=== PATIENT | male | born 1945 | race Caucasian/White ===

== ENCOUNTER → 2018-09-13 | Outpatient (CLI) | payer MEDICARE, BC ==
[~2018-09-13] MED LIST: ASPI81CH PO; Cyclobenzaprine5 MG PO; LOSA25 PO; LOVA40; METF500 PO; Norco 5-325 Ta1 EACH PO; OMEP20ER PO
== END | disposition home or self-care (01) ==
LOC: LAB SRC 09:30 → LAB SHORT 09:30
DX: E78.2 Mixed hyperlipidemia (principal); E11.9 Type 2 diabetes mellitus without complications; I10 Essential (primary) hypertension
CPT/HCPCS: 82043

== ENCOUNTER 2018-12-07 13:36 | Day surgery (SDC) | payer MEDICARE, BC ==
[~2018-12-07] VITALS: Ht 177.8 cm; Wt 81.0 kg
[2018-12-07] MEDS ORDERED: GLUC500 (14:07)
[2018-12-07] MEDS ORDERED: CYAN1000I (14:08)
[2018-12-07] MEDS ORDERED: FOLGARD TABLET1 EACH (14:08)
== END 2018-12-07 16:02 | disposition home or self-care (01) ==
LOC: ORSCSDS 13:36
PROVIDERS: Internal Medicine Gastroenterology
PROC: 0DBH8ZX Excision of Cecum, Via Natural or Artificial Opening Endoscopic, Diagnostic (ICD-10-PCS; principal; 2018-12-07 15:00)
PROC: 0DBN8ZX Excision of Sigmoid Colon, Via Natural or Artificial Opening Endoscopic, Diagnostic (ICD-10-PCS; principal; 2018-12-07 15:00)
PROC: 0DBL8ZX Excision of Transverse Colon, Via Natural or Artificial Opening Endoscopic, Diagnostic (ICD-10-PCS; principal; 2018-12-07 15:00)
PROC: 0DBM8ZX Excision of Descending Colon, Via Natural or Artificial Opening Endoscopic, Diagnostic (ICD-10-PCS; principal; 2018-12-07 15:00)
DX: Z12.11 Encounter for screening for malignant neoplasm of colon (principal); Z86.010 Personal history of colon polyps; D12.3 Benign neoplasm of transverse colon; D12.0 Benign neoplasm of cecum; D12.4 Benign neoplasm of descending colon; K57.30 Diverticulosis of large intestine without perforation or abscess without bleeding; E11.9 Type 2 diabetes mellitus without complications; F17.210 Nicotine dependence, cigarettes, uncomplicated; Z79.899 Other long term (current) drug therapy; Z79.82 Long term (current) use of aspirin; Z79.84 Long term (current) use of oral hypoglycemic drugs
CPT/HCPCS: 82947; 88305; J2704; J7120

== ENCOUNTER → 2019-03-16 | Outpatient (CLI) | payer MEDICARE, BC ==
[~2019-03-16] MED LIST changes: +CYAN1000I; +FOLGARD TABLET1 EACH; +GLUC500
== END | disposition home or self-care (01) ==
LOC: LAB SHORT 12:38 → LAB SRC 12:38 → LAB FUT 03-15 10:00
DX: E11.9 Type 2 diabetes mellitus without complications (principal); E78.2 Mixed hyperlipidemia; I10 Essential (primary) hypertension
CPT/HCPCS: 82043

== ENCOUNTER 2020-04-20 14:17 | Emergency (ER) | payer MEDICARE, BC ==
[~2020-04-20] VITALS: Ht 177.8 cm; Wt 83.9 kg
[2020-04-20 18:54] LABS: BASOPHILS ABSOLUTE AUTO 0.07 K/mm3 (0.00-0.23); BASOPHILS PERCENT AUTO 1 % (0-2); EOSINOPHILS ABSOLUTE AUTO 0.28 K/mm3 (0.00-0.68); EOSINOPHILS PERCENT AUTO 3 % (0-6); Hematocrit 45.1 % (37.0-53.0); Hemoglobin 14.9 g/dL (13.5-17.5); IMMATURE GRAN ABSOLUTE AUTO 0.01 K/mm3 (0.00-0.10); IMMATURE GRAN PERCENT AUTO 0 % (0-1); LYMPHOCYTES ABSOLUTE AUTO 3.06 K/mm3 (0.84-5.20); LYMPHOCYTES PERCENT AUTO 31 % (21-46); MONOCYTES PERCENT AUTO 9 % (4-13); Mean Corpuscular Volume 91 fL (80-100); Mean Platelet Volume 9.2 fL (9.1-12.4); NEUTROPHILS ABSOLUTE AUTO 5.69 K/mm3 (1.96-9.15); NEUTROPHILS PERCENT AUTO 57 % (41-73); Platelet Count 311 K/mm3 (150-400); RDW Coefficient Variation 13.2 % (11.7-14.2); RDW Standard Deviation 44.3 fL (35.1-46.3); Red Blood Cell Count 4.97 M/mm3 (4.30-5.90); White Blood Cell Count 10.01 K/mm3 (4.00-11.30)
[2020-04-20 19:16] LABS: Alanine Aminotransfer (ALT/SGP 33 U/L (12-78); Albumin, Blood 4.1 g/dL (3.4-5.0); Albumin/Globulin Ratio 1.1 (0.8-1.8); Alk Phos 137 U/L (50-136); Anion Gap 5 mmol/L (6-16); Aspartate Aminotrans (AST/SGOT 22 U/L (12-37); Bilirubin, Total 0.3 mg/dL (0.1-1.0); Blood Urea Nitrogen 19 mg/dL (8-24); CO2, Blood 27 mmol/L (21-32); CPK Creatine Kinase 97 U/L (39-308); Calcium, Blood 9.2 mg/dL (8.5-10.1); Chloride, Blood 110 mmol/L (98-108); Creatinine, Blood 0.83 mg/dL (0.60-1.20); Globulin, Blood 3.6 g/dL (2.2-4.0); Glomerular Filtration Rate >60 (60-); Glucose, Blood 109 mg/dL (70-99); Potassium, Blood 3.7 mmol/L (3.5-5.5); Sodium, Blood 142 mmol/L (136-145); Total Protein, Blood 7.7 g/dL (6.4-8.2)
== END 2020-04-20 20:47 | disposition home or self-care (01) ==
LOC: ER 14:17
PROVIDERS: Emergency Medicine
DX: R10.32 Left lower quadrant pain (principal); E11.9 Type 2 diabetes mellitus without complications; I10 Essential (primary) hypertension; E78.00 Pure hypercholesterolemia, unspecified; F17.200 Nicotine dependence, unspecified, uncomplicated; Z79.82 Long term (current) use of aspirin; Z79.899 Other long term (current) drug therapy; Z79.84 Long term (current) use of oral hypoglycemic drugs
CPT/HCPCS: 36415; 73502; 80053; 82550; 85025; 93971; 99284-25

== ENCOUNTER 2021-01-07 20:29 | Emergency (ER) | payer MEDICARE, BC ==
[~2021-01-07] VITALS: Ht 177.8 cm; Wt 81.7 kg
== END 2021-01-07 22:10 | disposition home or self-care (01) ==
LOC: ER 20:29
DX: S43.014A Anterior dislocation of right humerus, initial encounter (principal); W01.10XA Fall on same level from slipping, tripping and stumbling with subsequent striking against unspecified object, initial encounter; E11.9 Type 2 diabetes mellitus without complications; I10 Essential (primary) hypertension; E78.00 Pure hypercholesterolemia, unspecified; F17.200 Nicotine dependence, unspecified, uncomplicated
CPT/HCPCS: 23650; 73020; 73030; 96374; 96375; 99283-25; J2270; J2405; J2704; J3010; J7030

== ENCOUNTER 2021-03-04 02:46 | Emergency (ER) | payer MEDICARE, BC ==
[~2021-03-04] VITALS: Ht 177.8 cm; Wt 81.7 kg
[2021-03-04] MEDS ORDERED: TRAM50 PO (02:59)
[2021-03-04] MEDS ORDERED: TIZA4 PO (02:59)
[2021-03-04] MEDS ORDERED: LOSA50 PO (03:00)
[2021-03-04] MEDS ORDERED: LIDO700A20 TOP (03:24)
[2021-03-04] MEDS ORDERED: CYCL10 PO (03:24)
[2021-03-04] MEDS ORDERED: IBUP400 PO (03:24)
== END 2021-03-04 03:38 | disposition home or self-care (01) ==
LOC: ER 02:46
DX: G89.29 Other chronic pain (principal); M54.50 Low back pain, unspecified; I10 Essential (primary) hypertension; E11.9 Type 2 diabetes mellitus without complications; E78.00 Pure hypercholesterolemia, unspecified; F17.200 Nicotine dependence, unspecified, uncomplicated; Z79.899 Other long term (current) drug therapy; Z79.84 Long term (current) use of oral hypoglycemic drugs; Z79.82 Long term (current) use of aspirin
CPT/HCPCS: 99283-25; A9270

== ENCOUNTER 2021-05-07 14:11 | Day surgery (SDC) | payer MEDICARE, BC ==
[~2021-05-07] VITALS: Ht 177.8 cm; Wt 79.0 kg
[~2021-05-07 14:11] MED LIST changes: +CYCL10 PO; +IBUP400 PO; +LIDO700A20 TOP; +LOSA50 PO; +TIZA4 PO; +TRAM50 PO
--- NOTE | 2021-05-07 17:38 | NUR ---
05/07/21 6199 Joceline Sun THROUGHLY WENT OVER DC INSTRUCTIONS WITH PT AND , ANSWERED ALL QUESTIONS.
== END 2021-05-07 17:30 | disposition home or self-care (01) ==
LOC: ORSCSDS 14:11
PROVIDERS: Internal Medicine Gastroenterology
PROC: 0DB58ZX Excision of Esophagus, Via Natural or Artificial Opening Endoscopic, Diagnostic (ICD-10-PCS; principal; 2021-05-07 15:45)
PROC: 0DB98ZX Excision of Duodenum, Via Natural or Artificial Opening Endoscopic, Diagnostic (ICD-10-PCS; principal; 2021-05-07 15:45)
PROC: 0DB68ZX Excision of Stomach, Via Natural or Artificial Opening Endoscopic, Diagnostic (ICD-10-PCS; principal; 2021-05-07 15:45)
DX: R10.12 Left upper quadrant pain (principal); K29.80 Duodenitis without bleeding; K22.81 Esophageal polyp; K29.70 Gastritis, unspecified, without bleeding; E11.9 Type 2 diabetes mellitus without complications; F17.210 Nicotine dependence, cigarettes, uncomplicated; Z79.84 Long term (current) use of oral hypoglycemic drugs; Z79.82 Long term (current) use of aspirin; Z79.899 Other long term (current) drug therapy
CPT/HCPCS: 82947; 88305; 88342; J0330; J0461; J2405; J2704; J7120

== ENCOUNTER 2022-12-04 07:37 | Day surgery (SDC) | payer MEDICARE, BC ==
[~2022-12-04] VITALS: Ht 177.8 cm; Wt 81.6 kg
[2022-12-04] MEDS ORDERED: Vitamin C100 M1 (07:56)
[2022-12-04] MEDS ORDERED: ROSU5 (07:57)
[2022-12-04] MEDS ORDERED: MULTIPLE VITAM1 EACH (07:57)
[2022-12-04] MEDS ORDERED: FAMO10 (07:58)
[2022-12-04] MEDS ORDERED: OLMESARTAN (07:58)
[2022-12-04 10:10] VITALS: BP 120/72
--- NOTE | 2022-12-04 10:39 | NUR ---
12/04/22 1039 MASHA CHURCH IV REMOVED. WNL. CANNULA INTACT. ROMARIO WELL
== END 2022-12-04 10:48 | disposition home or self-care (01) ==
LOC: ORSCSDS 07:37
PROVIDERS: Internal Medicine Gastroenterology
PROC: 0DBN8ZX Excision of Sigmoid Colon, Via Natural or Artificial Opening Endoscopic, Diagnostic (ICD-10-PCS; principal; 2022-12-04 09:00)
PROC: 0DBM8ZX Excision of Descending Colon, Via Natural or Artificial Opening Endoscopic, Diagnostic (ICD-10-PCS; principal; 2022-12-04 09:00)
PROC: 0DBH8ZX Excision of Cecum, Via Natural or Artificial Opening Endoscopic, Diagnostic (ICD-10-PCS; principal; 2022-12-04 09:00)
DX: Z12.11 Encounter for screening for malignant neoplasm of colon (principal); Z86.010 Personal history of colon polyps; D12.4 Benign neoplasm of descending colon; D12.0 Benign neoplasm of cecum; K63.5 Polyp of colon; K57.30 Diverticulosis of large intestine without perforation or abscess without bleeding; Z79.899 Other long term (current) drug therapy; Z79.82 Long term (current) use of aspirin; K21.9 Gastro-esophageal reflux disease without esophagitis; E11.9 Type 2 diabetes mellitus without complications; F17.210 Nicotine dependence, cigarettes, uncomplicated; Z79.84 Long term (current) use of oral hypoglycemic drugs
CPT/HCPCS: 82947; 88305; J2704; J7120; Q9968

== ENCOUNTER 2023-12-28 09:40 | Day surgery (SDC) | payer MEDICARE, BC ==
[~2023-12-28] VITALS: Ht 177.8 cm; Wt 78.7 kg
[~2023-12-28 09:40] MED LIST changes: +FAMO10; +Lactated Ringer's 1,000 ML IV ONE; +MULTIPLE VITAM1 EACH; +OLMESARTAN; +ROSU5; +Vitamin C100 M1; +propofoL 50 ML IV ONE
[2023-12-28] MEDS ORDERED: METF500 (10:22)
[2023-12-28] MEDS ORDERED: Lactated Ringer's 1,000 ML IV ONE (11:12)
[2023-12-28 12:19] VITALS: BP 112/69
== END 2023-12-28 12:35 | disposition home or self-care (01) ==
LOC: ORSCSDS 09:40
PROVIDERS: Internal Medicine Gastroenterology
PROC: 0DBP8ZX Excision of Rectum, Via Natural or Artificial Opening Endoscopic, Diagnostic (ICD-10-PCS; principal; 2023-12-28 11:15)
PROC: 0DB78ZX Excision of Stomach, Pylorus, Via Natural or Artificial Opening Endoscopic, Diagnostic (ICD-10-PCS; principal; 2023-12-28 11:15)
DX: R19.7 Diarrhea, unspecified (principal); Z86.0100 Personal history of colon polyps, unspecified; K21.9 Gastro-esophageal reflux disease without esophagitis; D12.8 Benign neoplasm of rectum; K31.7 Polyp of stomach and duodenum; F17.210 Nicotine dependence, cigarettes, uncomplicated; K57.30 Diverticulosis of large intestine without perforation or abscess without bleeding; E11.9 Type 2 diabetes mellitus without complications; E78.5 Hyperlipidemia, unspecified; I10 Essential (primary) hypertension; Z79.899 Other long term (current) drug therapy
CPT/HCPCS: 82947; 88305; 88341; 88342; J2704; J7120

== ENCOUNTER 2024-03-16 22:24 | Emergency (ER) | payer MEDICARE, BC ==
[~2024-03-16] VITALS: Ht 177.8 cm; Wt 82.5 kg
[~2024-03-16 22:24] MED LIST changes: -Lactated Ringer's 1,000 ML IV ONE; +METF500; -propofoL 50 ML IV ONE
[2024-03-16 23:09] LABS: BASOPHILS ABSOLUTE AUTO 0.07 K/mm3 (0.00-0.23); BASOPHILS PERCENT AUTO 1 % (0-2); EOSINOPHILS ABSOLUTE AUTO 0.22 K/mm3 (0.00-0.68); EOSINOPHILS PERCENT AUTO 2 % (0-6); Hematocrit 40.5 % (37.0-53.0); Hemoglobin 13.5 g/dL (13.5-17.5); IMMATURE GRAN ABSOLUTE AUTO 0.04 K/mm3 (0.00-0.10); IMMATURE GRAN PERCENT AUTO 0 % (0-1); LYMPHOCYTES ABSOLUTE AUTO 2.82 K/mm3 (0.84-5.20); LYMPHOCYTES PERCENT AUTO 24 % (21-46); MONOCYTES PERCENT AUTO 8 % (4-13); Mean Corpuscular HGB 30.1 pg (26.0-34.0); Mean Corpuscular HGB Conc 33.3 g/dL (31.5-36.5); Mean Corpuscular Volume 90 fL (80-100); Mean Platelet Volume 8.8 fL (9.1-12.4); NEUTROPHILS ABSOLUTE AUTO 7.63 K/mm3 (1.96-9.15); NEUTROPHILS PERCENT AUTO 65 % (41-73); Platelet Count 292 K/mm3 (150-400); RDW Coefficient Variation 13.7 % (11.7-14.2); RDW Standard Deviation 45.7 fL (35.1-46.3); Red Blood Cell Count 4.48 M/mm3 (4.30-5.90); White Blood Cell Count 11.68 K/mm3 (4.00-11.30)
[2024-03-16 23:18] LABS: Albumin, Blood 3.7 g/dL (3.4-5.0); Albumin/Globulin Ratio 1.1 (0.8-1.8); Bilirubin, Total 0.2 mg/dL (0.1-1.0); Calcium, Blood 9.1 mg/dL (8.5-10.1); Creatinine, Blood 0.79 mg/dL (0.60-1.20); Globulin, Blood 3.5 g/dL (2.2-4.0); Potassium, Blood 3.8 mmol/L (3.5-5.5); Total Protein, Blood 7.2 g/dL (6.4-8.2)
[2024-03-17 02:45] VITALS: BP 133/66
[2024-03-17] MEDS ORDERED: Azithromycin 250 MG Tab PO ONE (02:55)
[2024-03-17] MEDS ORDERED: Amoxicillin/Clavulanate K 875 MG Tab PO ONE (02:55)
[2024-03-17] MEDS ORDERED: AMOCLA875 PO (03:26)
[2024-03-17] MEDS ORDERED: AZIT250 PO (03:26)
== END 2024-03-17 03:30 | disposition home or self-care (01) ==
LOC: ER 22:24
PROVIDERS: Student in an Organized Health Care Education/Training Program
DX: J18.9 Pneumonia, unspecified organism (principal); R07.81 Pleurodynia; D72.829 Elevated white blood cell count, unspecified; E11.9 Type 2 diabetes mellitus without complications; I10 Essential (primary) hypertension; E78.00 Pure hypercholesterolemia, unspecified; F17.200 Nicotine dependence, unspecified, uncomplicated; Z79.82 Long term (current) use of aspirin; Z79.84 Long term (current) use of oral hypoglycemic drugs; Z79.899 Other long term (current) drug therapy; Z59.89 Other problems related to housing and economic circumstances
CPT/HCPCS: 71046; 71260; 80053; 83880; 84484; 85025; 99284-25; A9270; Q9967